=== PATIENT | male | born 1960 | race Caucasian/White ===

== ENCOUNTER → 2025-04-24 | Outpatient (CLI) | payer OTHER, SELFPAY ==
--- NOTE | 2025-04-24 13:07 | VDLE_ITS ---
Reason For Study Reason For Study: BLE Pain RIGHT LEFT GSV is normal. GSV is normal. CFV is compressible, spontaneous, phasic, competent CFV is compressible, spontaneous, phasic, competent, and demonstrates normal augmentation. and demonstrates normal augmentation. FV is compressible, spontaneous, phasic, competent FV is compressible, spontaneous, phasic, competent and demonstrates normal augmentation. and demonstrates normal augmentation. POP V is compressible, spontaneous, phasic, competent POP V is compressible, spontaneous, phasic, competent and demonstrates normal augmentation. and demonstrates normal augmentation. T/P Trunk is compressible. T/P Trunk is compressible. PTV is compressible. PTV is compressible. RT PerV is compressible. LT PerV is compressible. Procedure Lt Gastrocnemius Vein appears dilated and measures This is a venous duplex using B-mode, color flow and approximately 1.31cm x 1.56cm. spectral Doppler. Exam performed in department. The exam was diagnostic. A preliminary report was called and/or faxed to Sergio Ortiz - Dr. River. VL/Venous Duplex US - Gabriel Extrem Interpretation Summary Deep veins of the bilateral lower extremities are patent and compressible segme ntally. There is no evidence of bilateral lower extremity deep vein thrombosis. The bilateral great saphenous veins appea r patent and compressible segmentally. Left gastrocnemius vein dilated without thrombus. Ordering Physician: Abraham River Referring Physician: Brody Blanchard Performed By: Puneet Morse, RVT
[2025-04-24 15:13] LABS: Hematocrit 39.1 % (40-54); Hemoglobin 12.8 g/dL (13.0-16.5); Immature Granulocytes Count 0.040 X10^3/uL (0.0-0.0); Mean Corp Hgb Conc 32.7 g/dL (32-36); Mean Corpuscular Volume 93.1 fL (80-94); Mean Platelet Vol. 10.4 fl (6.2-12.0); NRBC Flagged by Analyzer 0 % (0-5); Platelet Count 288 K/mm3 (150-450); RBC Distribution Width CV 13.1 % (11.6-14.6); RBC Distribution Width SD 44.6 fl (35.1-43.9); Red Blood Count 4.20 M/mm3 (4.6-6.2); White Blood Count 9.0 K/mm3 (4.4-11.0)
[2025-04-24 16:04] LABS: AST(SGOT) 63 U/L (<=37); Alanine Aminotransfer ALT/SGPT 73 U/L (<=46); Albumin, Serum 3.7 g/dL (3.4-4.8); Alkaline Phosphatase 88 U/L (40-129); Anion Gap 12 (5-15); BUN 14 mg/dL (4-19); BUN/Creat Ratio 13.9 RATIO (10-20); Calcium,Total 9.1 mg/dL (7.6-11.0); Carbon Dioxide 23.1 mmol/L (21.0-32.0); Chloride 105 mmol/L (98-108); Globulin 3.9 g/dL (2.2-4.2); Glucose 122 mg/dL (70-99); Potassium 4.2 mmol/L (3.3-5.1)
== END | disposition home or self-care (01) ==
PROVIDERS: PCP Family Medicine; Referring Provider Student in an Organized Health Care Education/Training Program; Visit Provider Student in an Organized Health Care Education/Training Program
DX: M79.661 Pain in right lower leg (principal); M79.662 Pain in left lower leg; M17.32 Unilateral post-traumatic osteoarthritis, left knee; M25.462 Effusion, left knee
CPT/HCPCS: 36415; 80053; 85025; 93970

== ENCOUNTER → 2025-08-18 | Outpatient (CLI) | payer OTHER, SELFPAY ==
--- NOTE | 2025-08-18 08:49 | US_ITS ---
PROCEDURE: BREAST LIMITED UNILATERAL 08/18/2025 REASON FOR EXAM: M, Age 65 y/o , PALPABLE MASS RT BREAST. Inconclusive mammogram shows asymmetric densities in the retroareolar region of both breasts. Evaluate. The right breast asymmetric density does correlate to the palpable abnormality. COMPARISON: Mammogram dated 08/18/2025. TECHNIQUE: Procedure Code: [id number] Modality: US Procedure: BREAST LIMITED UNILATERAL FINDINGS: There are asymmetric hypoechoic masslike structure seen in the retroareolar region of both the right and left breast correlating to the asymmetric densities on the mammogram. Due to the irregularity, exact measurements are difficult to determine but they appear to measure approximately 2 cm each. They appears slightly smaller on the ultrasound than they do on the mammogram. The hypoechoic masslike structure seen on the ultrasound examination in the retroareolar region of the right breast does correlate to the palpable abnormality and the region seen in the right breast retroareolar region on the mammogram study. These areas have some blood flow to them. They are most compatible with gynecomastia. Neither area appears worrisome for malignancy. US/Breast Limited Unilateral IMPRESSION: The asymmetric density seen on the mammogram in the right breast and the palpab le abnormality appear to correspond to areas of gynecomastia on the ultrasound exam. These areas do not appear to be worrisome for malignancy. If the area does increase in size of follow-up ultrasound should be performed otherwise no further imaging a t this time is needed. BI-RADS 2: BENIGN RECOMMENDATION: OTHER. No additional imaging is required unless the palpable a haydee increases in size. Reading Location: [id number]
--- NOTE | 2025-08-18 08:49 | BI_ITS ---
EXAM: DIAG MAMM W/CAD, BILAT N/A CLINICAL HISTORY: M, Age 65 y/o , MASS. Palpable mass right breast. Evaluate. TECHNIQUE: Procedure Code: [id number] Modality: MG Procedure: DIAG MAMM W/CAD, BILAT. COMPARISON: None. FINDINGS: TISSUE DENSITY: The breasts are almost entirely fatty. Bilateral Breast Mammographic Findings: There are ill-defined irregular marginated asymmetric densities in the retroareolar regions of both breast. They each measure approximately 3 cm. They appear to have some adipose tissue within them and may represent gynecomastia. Further workup with ultrasound will be performed for further evaluation. The right breast asymmetric density does correlate to the palpable abnormality in the right breast. BI/DIAG MAMM W/CAD, BILAT IMPRESSION: There are ill-defined irregular marginated asymmetric densities in the retroare olar regions of both breast. They each measure approximately 3 cm. They appear to have some adipose tissue within them and ma y represent gynecomastia. Further workup with ultrasound will be performed for further evaluation. The right breast asymmetr ic density does correlate to the palpable abnormality in the right breast. OVERALL FINAL ASSESSMENT BI-RADS 0: INCOMPLETE - NEED ADDITIONAL IMAGING EVALUATION. RECOMMENDATION: Ultrasound Recommended Additional Recommendation none A letter with findings and recommendations will be mailed to the patient. Reading Location: [id number]
== END | disposition home or self-care (01) ==
PROVIDERS: PCP Family Medicine; Referring Provider Family Medicine; Visit Provider Family Medicine
DX: N63.10 Unspecified lump in the right breast, unspecified quadrant (principal)
CPT/HCPCS: 76642; 77062; 77066; G0279